=== PATIENT | female | born 1995 | race Caucasian/White ===

== ENCOUNTER 2016-06-19 09:13 | Emergency (ER) | payer OTHER ==
[2016-06-19 09:30] VITALS: BP 124/80
--- NOTE | 2016-06-19 09:57 | UC ---
Respiratory Complaint HPI - HPI Summary HPI Summary: URI symptoms for about 5 days such as cough, congestion, sinus pressure. - History of Current Complaint Chief Complaint: UCRespiratory Stated Complaint: SINUS Time Seen by Provider: 06/19/16 09:45 Hx Obtained From: Patient Hx Last Menstrual Period: 05/29/16 Onset/Duration: Gradual Onset, Lasting Days Timing: Constant Severity Initially: Moderate Severity Currently: Moderate Aggravating Factors: Recumbent Position Alleviating Factors: Nothing Associated Signs And Symptoms: Positive: URI, Nasal Congestion, Sinus Discomfort. Negative: Pleuritic Chest Pain, Wheezing, Hemoptysis, Calf Pain, Calf Swelling, Edema - Allergies/Home Medications Allergies/Adverse Reactions: Allergies Allergy/AdvReac Type Severity Reaction Status Date / Time [place] Allergy Hives Verified 06/19/16 09:24 Home Medications: Home Medications Fexofenadine (NF) [María 180 (NF)] 180 mg PO DAILY 06/19/16 [History Confirmed 06/19/16] guaiFENesin ER TAB [Mucinex*] 600 mg PO BID PRN 06/19/16 [History Confirmed 05/03] PMH/Surg Hx/FS Hx/Imm Hx Endocrine History Of: Denies: Diabetes - Surgical History Surgical History: None - Family History Known Family History: Positive: Other - no respiratory related illnesses. - Social History Occupation: Student Alcohol Use: Weekly Substance Use Type: None Smoking Status (MU): Never Smoked Tobacco Review of Systems All Other Systems Reviewed And Are Negative: Yes Physical Exam Triage Information Reviewed: Yes Appearance: Well-Appearing, No Pain Distress, Well-Nourished Vital Signs: Initial Vital Signs Temp 98.7 F 06/19/16 09:26 Pulse 75 06/19/16 09:26 Resp 16 06/19/16 09:26 BP 124/80 06/19/16 09:26 Pulse Ox 100 06/19/16 09:26 Vital Signs Reviewed: Yes Eye Exam: Normal Eyes: Positive: Conjunctiva Clear ENT: Positive: Hearing grossly normal, Pharyngeal erythema, Nasal congestion, TMs normal. Negative: Tonsillar swelling, Tonsillar exudate, Trismus, Muffled/ hoarse voice Neck exam: Normal Neck: Positive: Supple, Nontender, No Lymphadenopathy. Negative: Nuchal Rigidity Respiratory Exam: Normal Respiratory: Positive: Chest non-tender, Lungs clear, Normal breath sounds, No respiratory distress, No accessory muscle use. Negative: Respiratory distress, Decreased breath sounds, Accessory muscle use, Crackles, Rhonchi, Stridor, Wheezing Cardiovascular Exam: Normal Cardiovascular: Positive: RRR, No Murmur, Pulses Normal, Brisk Capillary Refill. Negative: Tachycardia Abdominal Exam: Normal Abdomen Description: Positive: Nontender, No Organomegaly Musculoskeletal Exam: Normal Musculoskeletal: Positive: Strength Intact, ROM Intact, No Edema Neurological Exam: Normal Neurological: Positive: Alert, Muscle Tone Normal, Fatigued Psychological Exam: Normal Skin Exam: Normal Skin: Negative: rashes UC Diagnostic Evaluation - Laboratory O2 Sat by Pulse Oximetry: 100 Respiratory Course/Dx - Course Course Of Treatment: uri viral with bronchitis. she will try decongestants and tessalon perles and if not improving, z pack day 9-10 - Differential Dx/Diagnosis Provider Diagnoses: uri. acute bronchitis. Discharge - Discharge Plan Condition: Good Disposition: HOME Prescriptions: Azithromycin TAB* [Zithromax TAB (Z-DARVIN) 250 mg #6 tabs] 2 tab PO .TODAY, THEN 1 DAILY #1 darvin Benzonatate CAP* [Tessalon 100 MG CAP*] 100 mg PO TID #24 cap Patient Education Materials: Acute Bronchitis (ED), Upper Respiratory Infection (ED) Referrals: Non Staff,Doctor [Primary Care Provider] - Additional Instructions: Start z pack if not improving by day 9-10.
== END 2016-06-19 09:58 | disposition home or self-care (01) ==
LOC: UCCORT 09:13
DX: J06.9 Acute upper respiratory infection, unspecified (principal); J20.9 Acute bronchitis, unspecified
CPT/HCPCS: 99212; G0463